=== PATIENT | female | born 1960 | race Caucasian/White ===

== ENCOUNTER 2018-08-06 01:20 | Outpatient (CLI) | payer BC, MEDICAID, SELFPAY ==
[2018-08-06 12:26] LABS: Hemoglobin A1C 6.9 % (4.5-6.2)
== END 2018-08-06 01:40 ==
PROVIDERS: PCP Family Medicine; Visit Provider Family Medicine
DX: E11.9 Type 2 diabetes mellitus without complications (principal)
CPT/HCPCS: 36415; 83036

== ENCOUNTER 2018-10-03 01:58 | Outpatient (CLI) | payer BC, SELFPAY ==
[2018-10-03 11:55] LABS: ESR 13 MM/HR (0-30)
== END 2018-10-03 02:18 ==
PROVIDERS: PCP Family Medicine; Visit Provider Family Medicine
DX: M89.8X9 Other specified disorders of bone, unspecified site (principal)
CPT/HCPCS: 36415; 85652

== ENCOUNTER 2018-10-15 15:02 | Outpatient (REF) | payer BC, MEDICAID, SELFPAY ==
--- NOTE | 2018-10-15 14:30 | PAPFT_PTH ---
PATIENT: Lu Anaya LOC: [facility] U#:[id number] AGE/SX: 58/F ROOM: RE10/15/[address]: LAW Marcos : 1960 BED: DIS: 10/15/2018 SPEC #: [id number] RECD: 10/15/18 18:14 STATUS: OSORIOSoren REQ #: [id number] MILADYS: 10/15/18 14:[address]: Myla Freeman DEPT: [facility] Cytology RECD BY: Conchita French ENTERED: 10/15/18 18:14 SP TYPE: PAPFT CHRISTINE DR: Luther Darnell MD Tissues: 1 - CX/ENDOCX FOR PAP SMEARS Procedures: PAP THIN PREP/UVM Screening HPV DNA PROBE Comments: [id number]
== END 2018-10-15 15:22 ==
LOC: LBN 15:02
PROVIDERS: PCP Family Medicine; Visit Provider Nurse Practitioner Family
DX: Z12.4 Encounter for screening for malignant neoplasm of cervix (principal); Z11.51 Encounter for screening for human papillomavirus (HPV)
CPT/HCPCS: 88142; 87624

== ENCOUNTER 2018-10-25 00:51 | Outpatient (CLI) | payer BC, MEDICAID, SELFPAY ==
--- NOTE | 2018-10-25 12:30 | DI.MAMMO_ITS ---
SYMPTOMS/DIAGNOSIS: SCREENING, Z12.31 MAMMOGRAM: Mammograms were interpreted according to the usual protocol including computer analysis with CAD system, tomosynthesis and C view imaging. The breasts are of moderate density with fairly symmetrical distribution of fibroglandular tissue. No dominant mass or clumped microcalcification is identified in either breast. The current examination is compared with previous examinations including 10/05 and there has been no gross interval change in appearance in comparison with the previous studies. CONCLUSION: No specific evidence of malignancy at this time. Routine screening examinations are suggested at yearly intervals in this age group according to the ACS/ACR guidelines. Category I. Breast density Category B. MQSA ASSESSMENT OF FINDINGS: Negative. Category 1. Patient will receive a letter notifying them of these results. BI-RADS category B. There are scattered areas of fibroglandular density.
== END 2018-10-25 01:11 ==
PROVIDERS: PCP Family Medicine; Visit Provider Nurse Practitioner Family
DX: Z12.31 Encounter for screening mammogram for malignant neoplasm of breast (principal)
CPT/HCPCS: 77063; 77067

== ENCOUNTER 2018-12-24 08:08 | Day surgery (SDC) | payer BC, SELFPAY ==
--- NOTE | 2018-12-24 06:55 | COLE_ITS ---
Date of service: 12/24/18 Time of Service: :24 Colonoscopy Report Date of procedure: 12/24/18 Pre-op diagnosis general: Hx of polyps, s/p sigmoid colectomy Post-op diagnosis procedure note: other (polyps) Procedure: Colonoscopy with polypectomy by cold forceps Surgeon: Corrine Bearden Anesthesia proc note operative: other (General/ ASA 2/ Ashwini Fox, [place]) Estimated blood loss (mL): 3 Pathology: other (Rectal polyps x3, sigmoid polyp) Complications: None Disposition: no change Indications: Mrs. Anaya is a pleasant 58 year old female seen in the office for another screening colonoscopy. Her last colonoscopy was in 2014 and she had a large tubular adenoma that could not be removed completely so she underwent a sigmoid colectomy. Risks, benefits and complications have been reviewed. Complications include but are not limited to bleeding, pain, perforation, missed small lesion/polyp, sore throat, aspiration and adverse reaction to the medications. Questions were entertained and answered to their satisfaction and they wished to proceed. No guarantees were given or implied. Prep: Miralax/Dulcolax Procedure Start Time: :24 Procedure End Time: :43 Retraction Time: 13 minutes Findings: 2 rectal polyps right at the dentate line rectal polyp at 13 cm Sigmoid polyp Procedure Description: After informed consent was obtained the patient was taken to the procedure room and placed in a left decubitous position. Monitors were applied and a time out was done. The patients name, date of , procedure, allergies to medications and metal in their body was reviewed. The patient was then sedated. Once sedated and comfortable a rectal exam was done. External exam was normal. Internal exam revealed a slightly decreased sphincter tone and no palpable masses. The scope was then introduced and retro-flexed. Grade 1 internal hemorrhoids were identified as well as 2 small sessile polyps just above the dentate line. The scope was then advanced to the cecum without difficulty. The TI and appendiceal orifice were identified. The prep was good. The scope was then slowly retracted over 13 minutes back into the rectum. Polyps were removed x1 in the sigmoid colon with a cold forceps and in the rectum x3 with cold forceps. The scope was removed and the patient was woken up and taken back to Same day surgery in stable condition. The patient tolerated the procedure well and there were no immediate compli cations. Follow up: The patient should follow up in 3-5 years unless they develop changes in bowel habits or other new gastrointestinal complaints.
--- NOTE | 2018-12-24 06:55 | W.PM.DSUDISC ---
Discharge Plan Disposition Patient Disposition: HOME Condition: Good Discharge Details Reason For Visit: Colon Cancer Screening Attending Provider: Corrine Bearden Primary Care Provider: Luther Darnell Home Meds and New Rx's Prescriptions: Continued atenolol 25 mg tablet 25 mg PO DAILY Qty: 90 RF: 3 lisinopril-hydrochlorothiazide 20-12.5 mg tablet 1 tab PO DAILY Qty: 90 RF: 3 atorvastatin 10 mg tablet 10 mg PO DAILY Qty: 90 RF: 3 terbinafine HCl 250 mg tablet 250 mg PO DAILY Qty: 30 RF: 1 omeprazole 20 MG capsule,delayed release(DR/EC) 20 mg PO BID Qty: 60 RF: 0 Blood Glucose Test 1 EACH strip 1 ea Miscellaneous BID Qty: 100 RF: 2 lancets 1 EACH misc 1 ea Miscellaneous BID Qty: 100 RF: 3 blood-glucose meter 1 EACH misc 1 ea Miscellaneous BID Qty: 1 RF: 0 Discontinued polyethylene glycol 3350 17 gram/dose powder 238 g PO ONCE Qty: 238 RF: 0 bisacodyl [Dulcolax (bisacodyl)] 5 mg tablet,delayed release (DR/EC) 5 mg PO ONCE Qty: 4 RF: 0 Discharge Instructions Instructions: Colonoscopy (DC), Colorectal Polyps (DC) Additional Instructions: Findings: small benign appearing polyps Follow up: depends on final pathology Please call if you develop: fevers >101.5 Nausea or Vomiting Abdominal pain that is not transient DAY SURGERY UNIT POST COLONOSCOPY INSTRUCTIONS 1. Because there will be medication in your system for the next 24 hours, you may feel a little sleepy. Your coordination will be affected. Therefore: a. Do not drive or operate dangerous equipment for 24 hours. b. Do not drink alcohol beverages for 24 hours (not even beer). c. Plan to go home and rest for the day. 2. Generally there are no restrictions on your activity after a day or so has gone by, but you may feel a bit fatigued for a few days. 3 After you arrive home you may have a light meal and return to a normal diet as you can tolerate it without feeling sick to your stomach. 4. After surgery, you may feel pain or discomfort. This should be only transient, but if it persists please contact your doctor. 5. If there are any questions regarding the findings of your procedure, please feel free to contact your doctor. 6. If you are unable to contact your doctor with a problem, contact the hospital at [phone]. 7. Continue all your regular medications unless directed otherwise. I understand the above instructions and have no questions. Signature of Patient or Responsible Adult Escort Date/Time Name of Responsible Adult Escort Signature of Nurse Date/Time Activity:: Activity as Tolerated Diet:: As Tolerated Discharge Orders Discharge Orders: Discharge Order (Routine); Ordered 12/24/18 Ordered By: Corrine Bearden DS: Diagnosis Discharge Diagnosis (1) S/P colonoscopy: Status: Acute (2) Colorectal polyps: Status: Acute
[2018-12-24 08:46] VITALS: BP 166/62; PULSE 73; RESP 18; TEMP 36.7; O2SAT 94
[2018-12-24 08:48] VITALS: BP 166/62; PULSE 73; RESP 18; TEMP 36.7; O2SAT 94
[2018-12-24] MEDS: Lactated Ringers 1,000 ML 80 ML IV (08:55)
[2018-12-24] MEDS: Sodium Citrate 30 ML CUP (09:15)
--- NOTE | 2018-12-24 09:26 | BOWEL_PTH ---
PATIENT: Lu Anaya LOC: [facility] U#:[id number] AGE/SX: 58/F ROOM: RE12/24/[address]: Corrine Bearden MD : 1960 BED: DIS: 12/24/2018 SPEC #: [id number] RECD: 12/24/18 12:57 STATUS: RANDY REQ #: [id number] MILADYS: 12/24/18 09:[address]: Corrine Bearden DEPT: Surgical Specimen RECD BY: Conchita French ENTERED: 12/24/18 12:58 SP TYPE: Bowel OTHR DR: Luther Darnell MD Tissues: 1 - BIOPSY BOWEL 2 - BIOPSY BOWEL Procedures: GROSS AND MICRO LEVEL 4 Comments: [id number]
[2018-12-24 10:12] VITALS: BP 131/67; PULSE 64; RESP 18; TEMP 36.8; O2SAT 96
== END 2018-12-24 10:51 | disposition home or self-care (01) ==
PROVIDERS: PCP Family Medicine; Visit Provider Surgery
PROC: 0DJD8ZZ Inspection of Lower Intestinal Tract, Via Natural or Artificial Opening Endoscopic (ICD-10-PCS; CPT 45378; principal; 2018-12-24 09:15)
DX: Z12.11 Encounter for screening for malignant neoplasm of colon (principal); K63.5 Polyp of colon; K64.0 First degree hemorrhoids; Z86.010 Personal history of colon polyps; Z90.49 Acquired absence of other specified parts of digestive tract; J44.9 Chronic obstructive pulmonary disease, unspecified; I10 Essential (primary) hypertension; K21.9 Gastro-esophageal reflux disease without esophagitis
CPT/HCPCS: 45380; 88305

== ENCOUNTER 2019-01-08 09:29 | Outpatient (CLI) | payer BC, SELFPAY ==
[2019-01-08 15:08] LABS: Cholesterol 163 mg/dL (50-200); HDL Cholesterol 34 mg/dL (40-60); LDL CHOLESTEROL 100 mg/dL (<100); Triglyceride 240 mg/dL (30-150)
== END 2019-01-08 09:49 ==
PROVIDERS: PCP Family Medicine; Visit Provider Family Medicine
DX: I10 Essential (primary) hypertension (principal); E11.9 Type 2 diabetes mellitus without complications
CPT/HCPCS: 36415; 80061; 83721; 83036

== ENCOUNTER 2019-07-16 02:40 | Outpatient (CLI) | payer BC, MEDICAID, SELFPAY ==
[2019-07-16 13:11] LABS: ALT 32 U/L (14-59); AST 14 U/L (15-37); CREATININE 0.72 mg/dL (0.55-1.02); Potassium 4.4 mmol/L (3.5-5.1)
[2019-07-16 13:17] LABS: Hemoglobin A1C 7.9 % (4.5-6.2)
[2019-07-16 14:26] LABS: ESR 10 mm/hr (0-30)
== END 2019-07-16 03:00 ==
PROVIDERS: PCP Family Medicine; Visit Provider Family Medicine
DX: E11.9 Type 2 diabetes mellitus without complications (principal); M79.10 Myalgia, unspecified site
CPT/HCPCS: 36415; 85652; 82565; 83036; 84132; 84450; 84460

== ENCOUNTER 2019-09-26 02:21 | Outpatient (CLI) | payer BC, MEDICAID, SELFPAY ==
--- NOTE | 2019-09-26 10:34 | DI.RAD_ITS ---
EXAM: XR LUMBAR SPINE COMPLETE CLINICAL HISTORY: low back pain with radicular symptoms on rt, M54.9 TECHNIQUE: COMPARISON: No exams were available for comparison FINDINGS: Five views were obtained. There is a minimal biconvex thoracolumbar scoliosis. There are degenerati ve changes of the SI joints bilaterally. The intervertebral disc spaces appear fairly well maintaine d. There are prominent multilevel changes of facet hypertrophy and endplate hypertrophy. No evidenc e of acute fracture. No evidence of spondylolysis or spondylolisthesis. IMPRESSION: Prominent hypertrophic degenerative changes predominantly involving facet joints of the lumbar spine.
== END 2019-09-26 02:41 ==
PROVIDERS: PCP Family Medicine; Visit Provider Family Medicine
DX: M54.5 Low back pain (principal); M54.16 Radiculopathy, lumbar region; M53.3 Sacrococcygeal disorders, not elsewhere classified; M47.26 Other spondylosis with radiculopathy, lumbar region
CPT/HCPCS: 72110

== ENCOUNTER 2021-03-24 01:59 | Outpatient (CLI) | payer BC, SELFPAY ==
--- NOTE | 2021-03-24 13:38 | DI.RAD_ITS ---
Exam(s) XR HAND LT COMPLETE EXAM: XR HAND LT COMPLETE CLINICAL HISTORY: left index finger pain,nodule band base lt finger dorsal asp,m79.642. TECHNIQUE: 2D digital imaging was performed. COMPARISON: No exams were available for comparison FINDINGS: BONES: No acute fracture is present. No bony destructive lesion is seen. JOINTS: No dislocation present. Degenerative changes are seen in the hand. The findings are most mar ked at the 1st CMC joint. SOFT TISSUE: Normal. IMPRESSION: No acute fracture or dislocation. DATA REPOSITORY: RADIATION DOSE DELIVERED:
== END 2021-03-24 02:19 ==
PROVIDERS: PCP Family Medicine; Visit Provider Family Medicine
DX: M79.645 Pain in left finger(s) (principal); R22.32 Localized swelling, mass and lump, left upper limb
CPT/HCPCS: 73130

== ENCOUNTER 2021-03-25 03:01 | Outpatient (CLI) | payer BC, MEDICAID, SELFPAY ==
[2021-03-25 15:50] LABS: CREATININE 0.7 mg/dL (0.55-1.02); Calculated LDL 90 mg/dL (<100); Cholesterol 185 mg/dL (<200); HDL Cholesterol 39 mg/dL (40-60); Potassium 4.6 mmol/L (3.5-5.1); Triglyceride 284 mg/dL (<150)
== END 2021-03-25 03:02 | disposition home or self-care (01) ==
LOC: LBO 03:01
PROVIDERS: PCP Family Medicine; Visit Provider Family Medicine
DX: E11.65 Type 2 diabetes mellitus with hyperglycemia (principal); E78.5 Hyperlipidemia, unspecified; I10 Essential (primary) hypertension
CPT/HCPCS: 36415; 80061; 82565; 84132

== ENCOUNTER 2021-07-23 15:07 | Outpatient (REF) | payer BC, SELFPAY ==
[2021-07-23 21:00] LABS: COMMENT (LAB VIEW ONLY) 45.91 mg/dL; Microalb ug/mg Crea 41.8 ug/mg Cr
== END 2021-07-23 15:08 | disposition home or self-care (01) ==
LOC: LBN 15:07
PROVIDERS: PCP Family Medicine; Visit Provider Family Medicine
DX: E11.9 Type 2 diabetes mellitus without complications (principal)
CPT/HCPCS: 82043; 82570

== ENCOUNTER 2022-02-02 11:08 | Outpatient (CLI) | payer BC, SELFPAY, MEDICAID ==
[2022-02-02 13:12] LABS: Calculated LDL 101 mg/dL (<100); Cholesterol 193 mg/dL (<200); HDL Cholesterol 38 mg/dL (40-60); Triglyceride 271 mg/dL (<150)
== END 2022-02-02 11:09 | disposition home or self-care (01) ==
LOC: LOS 11:08
PROVIDERS: PCP Family Medicine; Referring Provider Family Medicine; Visit Provider Family Medicine
DX: E78.5 Hyperlipidemia, unspecified (principal)
CPT/HCPCS: 36415; 80061

== ENCOUNTER 2022-05-04 11:29 | Outpatient (CLI) | payer BC, MEDICAID, SELFPAY ==
[2022-05-04 12:37] LABS: Abs Immature Grans 0.03 10^3/uL (0.0-0.06); Absolute Eosinophil Count 0.25 10^3/uL (0.0-0.7); Absolute Lymphocyte Count 2.81 10^3/uL (1.2-3.4); Absolute Monocyte Count 0.94 10^3/uL (0.1-0.8); Absolute Neutrophil Count 7.05 10^3/uL (1.2-6.7); Basophils % 0.9; Eosinophils % 2.2; HCT 47.2 % (36.0-46.0); HGB 15.6 g/dL (11.2-15.7); Immature Grans % 0.3; Lymphocytes % 25.1; MCH 29.3 pg (27.0-33.0); MCHC 33.1 % (32.0-36.0); MCV 89 fL (80-95); MPV 11.5 fL (8.0-11.0); Monocytes % 8.4; Neutrophils % 63.1; Platelet Count 308 10^3/uL (130-400); RBC 5.33 10^6/uL (3.93-5.22); WBC 11.18 10^3/uL (4.4-10.8)
[2022-05-04 12:42] LABS: CREATININE 0.7 mg/dL (0.55-1.02); Potassium 4.2 mmol/L (3.5-5.1)
== END 2022-05-04 11:30 | disposition home or self-care (01) ==
LOC: LOS 11:29
PROVIDERS: PCP Family Medicine; Referring Provider Family Medicine; Visit Provider Family Medicine
DX: I10 Essential (primary) hypertension (principal); D64.9 Anemia, unspecified
CPT/HCPCS: 36415; 82565; 84132; 85025

== ENCOUNTER 2022-08-03 22:22 | Outpatient (REF) | payer BC, SELFPAY ==
[2022-08-03 13:22] LABS: COMMENT (LAB VIEW ONLY) 25.84 mg/dL; Microalb ug/mg Crea 45.3 ug/mg Cr
== END 2022-08-03 22:23 | disposition home or self-care (01) ==
LOC: LBN 22:22
PROVIDERS: PCP Family Medicine; Visit Provider Family Medicine
DX: E11.9 Type 2 diabetes mellitus without complications (principal)
CPT/HCPCS: 82043; 82570

== ENCOUNTER → 2022-08-04 02:59 | Outpatient (CLI) | payer BC, SELFPAY ==
--- NOTE | 2022-08-04 07:00 | DI.RAD_ITS ---
Exam(s) XR LUMBAR SPINE COMPLETE EXAM: XR LUMBAR SPINE COMPLETE CLINICAL HISTORY: low back pain,M54.9 TECHNIQUE: COMPARISON: CR XR LUMBAR SPINE COMPLETE from 09/26/2019 FINDINGS: Five views were obtained. The intervertebral disc spaces appear fairly well maintained. There are m oderate hypertrophic endplate and facet changes throughout the lumbar region. There is no evidence o f fracture or dislocation. There is no evidence of spondylolysis or spondylolisthesis. There are mo derate degenerative changes of the SI joints bilaterally. IMPRESSION: DJD, no evidence of acute process. RADIATION DOSE DELIVERED: Total DLP
--- NOTE | 2022-08-04 07:00 | DI.RAD_ITS ---
Exam(s) XR KNEE RT 3V AP,LAT,ZELDA EXAM: XR KNEE RT 3V AP,LAT,ZELDA CLINICAL HISTORY: knee pain,M25.569 TECHNIQUE: COMPARISON: No exams were available for comparison FINDINGS: Three views were obtained. The cartilaginous joint spaces appear fairly well maintained. No gross j oint effusion seen on the lateral view. There is prominent marginal osteophyte of the patella superi stephen. No other significant bony abnormality seen. IMPRESSION: RADIATION DOSE DELIVERED: Total DLP
== END ==
PROVIDERS: PCP Family Medicine; Visit Provider Family Medicine
DX: M51.36 Other intervertebral disc degeneration, lumbar region (principal); G89.29 Other chronic pain; M25.561 Pain in right knee
CPT/HCPCS: 73562; 72110

== ENCOUNTER 2022-11-18 01:12 | Outpatient (CLI) | payer BC, SELFPAY ==
--- OUTSIDE RECORDS SUMMARY | 2022-11-18 01:13 | XMS_ITS ---
Author Name Martitamayela Marco Address [address] [place] [address] Organization [facility] Address [address] [place] [address] Care Team Providers Care Warehouse Receiving Clerk Name Role Phone Marco Bateman Unavailable [phone] PROBLEMS Type Condition ICD9-CM Code PBF14-PY Code Onset Dates Condition Status SNOMED Code Problem Other chronic pain G89.29 Active 26023808 Problem Left foot pain M79.672 Active 762185969 817912 Problem Posterior tibial tendinitis of left lower extremity M76.822 Active 77850314 Problem Pain in left ankle and joints of left foot M25.572 Active 279307931 ALLERGIES Substance Reaction Event Type Date Status Aspirin Unknown Drug Allergy Oct, Active ENCOUNTERS Encounter Location Date Diagnosis [facility] [address] Oct, Posterior tibial tendinitis of left lower extremity M76.822 ; Pain in left ankle and joints of left foot M25.572 and Left foot pain M79.672 [facility] [address] Oct, IMMUNIZATIONS No Known Immunizations SOCIAL HISTORY Qualifiers Date Former Smoker REASON FOR REFERRAL FUNCTIONAL STATUS PLAN OF CARE Activity Details VITAL SIGNS Height 66 in 2017-10-31 Weight 211.6 lbs 2017-10-31 BMI 34.15 kg/m2 2017-10-31 Temperature 98.1 degrees Fahrenheit Heart Rate 72 /min 2017-10-31 Respiratory Rate 20 /min 2017-10-31 Oximetry 93 % 2017-10-31 Blood pressure systolic 148 mm Hg 2018-02- 13 Blood pressure diastolic 88 mm Hg 2017-10 MEDICATIONS Medication Instructions Dosage Frequency Start Date End Date Duration Status Omeprazole 20 mg orally once a day 1 cap(s) 24h Active Atenolol 25 mg orally once a day 1 tab(s) 24h Active Diclofenac Sodium 1% applied topically 4 times a day 2 g 6h 13 Oct, 2017 30 day(s) Active Terbinafine HCl 250 mg orally once a day 1 tab(s) 24h Active [facility] Therapeutic Multiple Vitamins with Minerals orally once a day 1 tab(s) 24h Active HYDROCHLOROTHIAZ ALLEN-LISINOPRIL 12.5 mg-20 mg orally once a day 1 tab(s) 24h Active PROCEDURES Procedure Date Ordered Result Body Site SWEDO O STRAP BRACE Oct 31, 2017 [facility]([id number]) Oct 31, 2017 RESULTS No Results REASON FOR VISIT 4 week follow up , --PAIN IN LEFT ANKLE, REFERRAL DONE, pt states that she went to [facility] last week with pain in her left lateral foot. They took xrays which were negative except for arthritis, pt states that the ER recommended she maybe get some custom orthotics, 10/25 dg - Xrays- medical summary Insurance Providers Health Insurance Type Health Plan Insurance Address Health Plan Insurance Phone Health Plan Insurance Name Health Plan Coverage Dates Member ID Patient Relationship to Subscriber Patient Address Patient Phone Patient Name Patient Date of Subscriber ID Subscriber Name Subscriber Date of Group No SELF PAY AFTER BLUE CROSS ANY [facility] [id number] SELF PAY AFTER BLUE CROSS self [employer] [facility] [id number] [facility] [address] [place] [address] [facility] self [employer] [facility] [id number] SELF PAY NO INSURANCE ANY [facility] [id number] SELF PAY NO INSURANCE self [employer] [place] [id number] BLUE [facility] [address] [facility] [place] [address] BLUE [facility] self [employer] [place] [id number]
--- NOTE | 2022-11-18 07:30 | DI.RAD_ITS ---
Exam(s) XR COCCYX EXAM: XR COCCYX CLINICAL HISTORY: fell on buttocks; pain in coccyx,traumatic fx,s32.2xxa. TECHNIQUE: 2D digital imaging was performed. COMPARISON: No exams were available for comparison FINDINGS: 3 views There is a minimally displaced fracture at the junction of the sacrum-coccyx. No osseous lesions verenice dent in the sacrum. Mild degenerative anterolisthesis of L4 upon L5 noted related to facet arthropat hy. IMPRESSION: Minimally displaced fracture at sacrum coccyx junction. DATA REPOSITORY: RADIATION DOSE DELIVERED:
== END 2022-11-18 01:32 ==
LOC: DI 01:12
PROVIDERS: PCP Family Medicine; Visit Provider Family Medicine
DX: S32.2XXA Fracture of coccyx, initial encounter for closed fracture (principal); W19.XXXA Unspecified fall, initial encounter; M53.3 Sacrococcygeal disorders, not elsewhere classified
CPT/HCPCS: 72220

== ENCOUNTER 2023-02-10 20:39 | Emergency (ER) | payer BC, SELFPAY ==
[2023-02-10 20:50] VITALS: BP 152/78; PULSE 94; RESP 22; TEMP 36.9; O2SAT 95
--- NOTE | 2023-02-10 21:30 | DI.RAD_ITS ---
Exam(s) XR KNEE RT 3V AP,LAT,ZELDA EXAM: XR KNEE RT 3V AP,LAT,ZELDA CLINICAL HISTORY: trauma, pain. TECHNIQUE: 2D digital imaging was performed. COMPARISON: CR,XR XR KNEE LT 3V AP,LAT,ZELDA from 02/10/2023 FINDINGS: 3 views No evidence of acute fracture nor obvious joint effusion. Mild degenerative changes in the patellofe moral compartment. Also small osteophytic density just above the superior pole the patella which harris s not have the appearance of an acute fracture fragment. No narrowing of the medial lateral compartm ents. Bone density normal. No osseous lesions. IMPRESSION: Mild degenerative changes. No joint effusion. DATA REPOSITORY: RADIATION DOSE DELIVERED:
--- NOTE | 2023-02-10 21:30 | DI.RAD_ITS ---
Exam(s) XR KNEE LT 3V AP,LAT,ZELDA EXAM: XR KNEE LT 3V AP,LAT,ZELDA CLINICAL HISTORY: trauma pain. TECHNIQUE: 2D digital imaging was performed. COMPARISON: CR XR KNEE RT 3V AP,LAT,ZELDA from 08/04/2022 FINDINGS: 3 views No evidence of acute fracture or joint effusion. Some degenerative change noted in the patellofemora l compartment and mild degenerative change in the medial lateral compartments. There is no bone dens ity. No osseous lesions. IMPRESSION: Mild degenerative changes. No joint effusion. DATA REPOSITORY: RADIATION DOSE DELIVERED:
--- NOTE | 2023-02-10 21:38 | ED.GENADUL_ITS ---
Discharge Plan Disposition Patient Disposition: Home Condition: Stable Discharge Details Clinical Impression: Multiple contusions, Abrasion Primary Care Provider: Luther Darnell ED Provider: Carolyn Poe Home Meds and New Rx's Prescriptions: Continued (DME) Blood Glucose Test 1 EACH strip 1 ea Miscellaneous BID Qty: 100 Patient Comments: 12/24/18 @ 0645 Rx Instructions: FOR freestyle precison ajay. METER. PT DOES NOT USE INSULIN. DIAGNOSIS CODE E11.9 (DME) lancets 1 EACH misc 1 ea Miscellaneous BID Qty: 100 Patient Comments: pt used today at 0645 Rx Instructions: FOR Freestyle METER. NO INSULIN. DIAGNOSIS CODE E11.9 (DME) blood-glucose meter 1 EACH misc 1 ea Miscellaneous BID Qty: 1 Patient Comments: used 12/24/18 @ 0645 Rx Instructions: METER TYPE freeslyle precision ajay. DIAGNOSIS CODE E11.9 No Action acetaminophen 500 mg capsule 500 mg PO Q6H PRN diclofenac sodium 75 mg tablet,delayed release (DR/EC) 75 mg PO BID Qty: 60 0RF atorvastatin 10 mg tablet 10 mg PO DAILY Qty: 90 3RF terbinafine HCl 250 mg tablet 250 mg PO DAILY Qty: 7 3RF Rx Instructions: take one pill each day for 7 days every 3 months Jardiance 25 mg tablet 25 mg PO QAM Qty: 90 3RF metformin 500 mg tablet 500 mg PO BID Qty: 180 3RF omeprazole 40 mg capsule,delayed release(DR/EC) 40 mg PO DAILY Qty: 30 3RF Rybelsus 14 mg tablet 14 mg PO DAILY Qty: 90 3RF fenofibrate nanocrystallized [Tricor] 48 mg tablet 48 mg PO DAILY Qty: 90 3RF lisinopril-hydrochlorothiazide 20-12.5 mg tablet 2 tab PO DAILY Qty: 180 3RF Discharge Instructions Instructions: Contusion in Adults (ED), Abrasion (ED), Laceration Without Closure (ED) Additional Instructions: Apply ice to affected areas every 2-3 hours while awake for the next 24 to 48 hours then can use heat or ice Can use ibuprofen and/or acetaminophen as directed for pain if needed Keep wounds clean and dry wash daily with warm soapy water rinse well pat dry apply dry dressing monitor for signs of infection and report immediately can wear chidi wraps to bilateral knees for comfort Referrals: Luther Darnell MD [Primary Care Provider] - Discharge Data Discharge Date/Time-TO BE ENTERED AT DEPARTURE: 02/10/23 23:58 HPI <Carolyn Poe NP - Last Filed: 02/11/23 20:36> General Mode of arrival: ambulatory . Date/Time Provider Initiated Documentation: 02/10/23 21:22 . Limitations to Documentation: no limitations . Information obtained by: patient . HPI Narrative: Mechanical fall today on her handicap ramp injuring both knees striking her left side of her forehead on the ground. There was no LOC she has no C-spine tenderness she also has an abrasion to the left elbow but full range of motion no significant pain no hematoma no deformity. She provided her own wound care at home there is no bleeding wounds are all clean and dry. Related Data Home Medications Medication Instructions Recorded Confirmed blood sugar diagnostic (Blood #100 strips 03/13/17 12/12/23 Glucose Test strips) lancets 28 gauge #100 ea 03/14/17 12/12/23 blood-glucose meter #1 ea 03/15/17 12/12/23 acetaminophen 500 mg capsule 500 mg PO Q6H PRN 03/07/23 12/12/23 semaglutide 14 mg tablet (Rybelsus) 14 mg PO DAILY #90 tabs 03/15/23 12/12/23 fenofibrate nanocrystallized 48 mg 48 mg PO DAILY #90 tabs 05/17/23 12/12/23 tablet (Tricor) lisinopril 20 2 tab (2 x 20-12.5 mg) PO DAILY 05/18/23 12/12/23 mg-hydrochlorothiazide 12.5 mg #180 tab-caps tablet atorvastatin 10 mg tablet 10 mg PO DAILY #90 tabs 08/17/23 12/12/23 terbinafine HCl 250 mg tablet 250 mg PO DAILY #7 tab-caps 08/17/23 12/12/23 empagliflozin 25 mg tablet 25 mg PO QAM #90 tabs 11/15/23 12/12/23 (Jardiance) metformin 500 mg tablet 500 mg PO BID #180 tabs 11/15/23 12/12/23 omeprazole 40 mg capsule,delayed 40 mg PO DAILY #30 caps 11/15/23 12/12/23 release diclofenac sodium 75 mg 75 mg PO BID #60 tabs 12/12/23 12/12/23 tablet,delayed release Previous Rx's Medication Instructions Recorded semaglutide 14 mg tablet (Rybelsus) 14 mg PO DAILY #90 tabs 03/15/23 fenofibrate nanocrystallized 48 mg 48 mg PO DAILY #90 tabs 05/17/23 tablet (Tricor) lisinopril 20 2 tab (2 x 20-12.5 mg) PO DAILY 05/18/23 mg-hydrochlorothiazide 12.5 mg #180 tab-caps tablet atorvastatin 10 mg tablet 10 mg PO DAILY #90 tabs 08/17/23 terbinafine HCl 250 mg tablet 250 mg PO DAILY #7 tab-caps 08/17/23 empagliflozin 25 mg tablet 25 mg PO QAM #90 tabs 11/15/23 (Jardiance) metformin 500 mg tablet 500 mg PO BID #180 tabs 11/15/23 omeprazole 40 mg capsule,delayed 40 mg PO DAILY #30 caps 11/15/23 release diclofenac sodium 75 mg 75 mg PO BID #60 tabs 12/12/23 tablet,delayed release Allergies Allergy/AdvReac Type Severity Reaction Status Date / Time ciprofloxacin AdvReac Severe HEARTBURN Verified 12/12/23 13:32 aspirin AdvReac Intermediate Nausea Verified 12/12/23 13:32 General Stated Complaint: Orthopedic DAR: 3 Review of Systems <Carolyn Poe NP - Last Filed: 02/11/23 20:36> All systems reviewed & are unremarkable except as noted in HPI and below Course <Carolyn Poe NP - Last Filed: 02/11/23 20:36> Vital Signs Vital signs: Vital Signs Temperature 36.9 C 02/10/23 20:50 Pulse 94 H 02/10/23 20:50 Respiratory Rate 22 02/10/23 20:50 Blood Pressure 152/78 H 02/10/23 20:50 Pulse Oximetry 95 02/10/23 20:50 Temperature 36.9 C 02/10/23 20:50 Temperature Source Oral 02/10/23 20:50 Pulse 94 H 02/10/23 20:50 Respiratory Rate 22 02/10/23 20:50 Blood Pressure 152/78 H 02/10/23 20:50 Blood Pressure Position Sitting 02/10/23 20:50 Pulse Oximetry 95 02/10/23 20:50 Oxygen Delivery Method Room Air 02/10/23 20:50 Oxygen Flow Rate 0 02/10/23 20:50 Pain Level 6 02/10/23 20:50 Medical Decision Making <Carolyn Poe NP - Last Filed: 02/11/23 20:36> Tetanus was updated 2019 Wounds cleansed by nursing dry dressings applied ice pack to left knee Given 1000 mg of acetaminophen orally for pain X-ray showed no acute fractures wound care instructions given Medical Records Medical records reviewed: Yes I reviewed the patient's medical records. Imaging Data Radiologic Study: Imaging: X-Ray (Bilateral knees) <Rodriguez Finney MD - Last Filed: 12/19/23 01:24> Medical Records Medical records narrative: I did not see this patient nor participate in her care. Rodriguez Finney MD [facility] <Carolyn Poe NP - Last Filed: 02/11/23 20:36> All Active Problems (Updated 12/12/23 @ 13:40 by Luther Darnell MD) Left elbow pain (Acute) Fatty liver (Acute) Epigastric pain (Acute) Foot pain (Acute) Metatarsalgia (Acute) Arthralgia (Acute) Contusion of right elbow (Acute) Elbow pain, right (Acute) Essential hypertension (Acute) Claustrophobia (Acute) Hyperlipidemia (Acute) Chronic obstructive lung disease (Acute) Gastroesophageal reflux disease (Acute) borderline diabetic (Acute) degenerative arthritis (Acute) Tubular adenoma (Acute) CDanielson, large tubular adenoma required resection 04/03/15, repeat colo three years per CD. mg Diverticula of colon (Acute 02/16/15) Degenerative joint disease (DJD) of hip (Acute) 08/08/13; RIGHT Encounter for screening colonoscopy (Acute) S/P colonoscopy (Acute ~12/24/18) Colorectal polyps (Acute ~12/24/18) Diabetes mellitus (Chronic) Chronic neck and back pain (Chronic) Hyperplastic colon polyp (Acute ~12/24/18) Status post carpal tunnel release (Acute) History of shoulder surgery (Acute 07/09/14) History of right knee surgery (Acute 07/09/14) History of laparoscopy (Acute) History of endoscopy (Acute) Bilateral carpal tunnel syndrome (Acute 07/09/14) Low back pain (Acute) Left hand pain (Acute) Asymmetric blood pressures (Acute) Myalgia (Acute) GERD (gastroesophageal reflux disease) (Chronic) Foot pain, right (Acute) Chronic knee pain (Acute) Cold extremities (Acute) Traumatic fracture of coccyx (Acute) Tick bite (Acute) Surgical History Diagnostic Laproscopy Early for ovarian cysts Endoscopy (06/20/13) History of colectomy History of colonoscopy knee Open Carpal Tunnel release Bilateral shoulder Family History Mother Essential hypertension Father Diabetes Essential hypertension Heart disease HAS PACEMAKER Sister Essential hypertension Hyperlipidemia Brother Sleep apnea Diabetes Essential hypertension Personal history of malignant neoplasm skin Heart disease ANGINA Hyperlipidemia Social History Smoking/Tobacco Use Status: Former Tobacco Use Quit Date: 11/16/12 Smoking risk assessment performed?: Yes Alcohol Intake: never Drug use: Never Substance use type: does not use Current gender identity: female Do you feel safe at home: Yes Do you feel safe in your relationship?: Yes History History 0 Para Hx # Term Pregnancies Multiple births Hx # Pregnancies Ectopic pregnancies AB induced Hx Number of Living Children AB spontaneous
[2023-02-10] MEDS: Acetaminophen 500 MG TAB 1000 MG PO (21:57)
--- NOTE | 2023-02-10 22:34 | DI.VRAD_ITS ---
PROCEDURE INFORMATION: Exam: XR Right Knee Exam date and time: 02/10/2023 10:05 PM Age: 62 years old Clinical indication: Other: Trauma pain TECHNIQUE: Imaging protocol: Radiologic exam of the right knee. Views: 3 views. COMPARISON: CR XR KNEE RT 3V AP,LAT,ZELDA 08/04/2022 12:38 PM FINDINGS: Bones/joints: There is mild spurring of the patella and tibial spines. Osseous alignment is normal. No acute fracture or joint fluid. Mild scattered calcification noted in the femoral/popliteal artery Soft tissues: Normal. IMPRESSION: Mild osteoarthritis. No acute abnormality Dictated and Authenticated by: Todd Bahena MD. Ordering:VIET Leon MD
--- NOTE | 2023-02-10 22:35 | DI.VRAD_ITS ---
PROCEDURE INFORMATION: Exam: XR Left Knee Exam date and time: 02/10/2023 10:04 PM Age: 62 years old Clinical indication: Other: Trauma pain TECHNIQUE: Imaging protocol: Radiologic exam of the left knee. Views: 3 views. COMPARISON: CR LEFT KNEE 3 VIEW COMPLETE 02/22/2017 8:25 AM FINDINGS: Bones/joints: There is mild spurring of the patella and tibial spines. Osseous alignment is normal. No acute fracture or joint fluid. Soft tissues: Normal. IMPRESSION: Mild osteoarthritis. No acute abnormality Dictated and Authenticated by: Todd Bahena MD. Ordering:VIET Leon MD
== END 2023-02-10 23:58 | disposition home or self-care (01) ==
PROVIDERS: Emergency Provider Nurse Practitioner Acute Care; PCP Family Medicine
DX: S80.212A Abrasion, left knee, initial encounter (principal); S80.211A Abrasion, right knee, initial encounter; S50.312A Abrasion of left elbow, initial encounter; S00.212A Abrasion of left eyelid and periocular area, initial encounter; W01.0XXA Fall on same level from slipping, tripping and stumbling without subsequent striking against object, initial encounter
CPT/HCPCS: 73562; 99283

== ENCOUNTER 2023-03-07 14:12 | Outpatient (REF) | payer BC, SELFPAY ==
--- NOTE | 2023-03-07 14:00 | PAPFT_PTH ---
PATIENT: Lu Anaya LOC: [facility] U#:[id number] AGE/SX: 62/F ROOM: RE03/07/[address]: Venice Greco MD : 1960 BED: DIS: 03/07/2023 SPEC #: [id number] RECD: 03/07/23 17:44 STATUS: RANDY REQ #: [id number] MILADYS: 03/07/23 14:[address]: Venice Greco DEPT: [facility] Cytology RECD BY: Conchita French ENTERED: 03/07/23 17:45 SP TYPE: PAPFT OTHR DR: Luther Darnell MD Tissues: 1 - CX/ENDOCX FOR PAP SMEARS Procedures: PAP THIN PREP/[facility] Screening HPV DNA PROBE Comments: [id number]
== END 2023-03-07 14:13 | disposition home or self-care (01) ==
LOC: LBN 14:12
PROVIDERS: PCP Family Medicine; Visit Provider Obstetrics & Gynecology
DX: Z11.51 Encounter for screening for human papillomavirus (HPV) (principal)
CPT/HCPCS: 88142; 87624

== ENCOUNTER 2023-03-20 02:05 | Outpatient (CLI) | payer BC, SELFPAY ==
--- NOTE | 2023-03-20 12:20 | DI.MAMMO_ITS ---
Exam(s) MAMMO SCREENING EXAM: MAMMO SCREENING CLINICAL HISTORY: screening, Z12.39 TECHNIQUE: Mammograms were interpreted according to the usual protocol including computer analysis w [employer] CAD system, tomosynthesis and C-view imaging. COMPARISON: 2012 through 2018 FINDINGS: The breasts are composed of scattered fibroglandular densities, Breast Density category B. No suspicious masses or suspicious microcalcifications are seen. No skin thickening or abnormal axillary lymph nodes are seen. There has been no significant change from prior exams. IMPRESSION: BI-RADS Category 1, Negative mammogram Yearly screening mammography is recommended. Breast Density - Category B, scattered fibroglandular densities. A negative radiographic report should not delay biopsy if a dominant or clinically suspicious mass is present. Up to ten percent of cancers are not identified on mammography. A negative report may reinforce clinical impression. Adenosis and dense breasts may obscure an underlying neoplasm. False positive reports average 6 to 10%. Patient will receive a letter notifying them of these results.
== END 2023-03-20 02:25 ==
LOC: DI 02:05
PROVIDERS: PCP Family Medicine; Visit Provider Obstetrics & Gynecology
DX: Z12.31 Encounter for screening mammogram for malignant neoplasm of breast (principal)
CPT/HCPCS: 77063; 77067

== ENCOUNTER 2023-03-29 15:17 | Outpatient (CLI) | payer BC, SELFPAY ==
--- NOTE | 2023-03-29 15:44 | DI.RAD_ITS ---
Exam(s) XR ELBOW RT COMPLETE EXAM: XR ELBOW RT COMPLETE CLINICAL HISTORY: elbow pain s/p fall 4 weeks ago, M25.521. TECHNIQUE: 2D digital imaging was performed. COMPARISON: No exams were available for comparison FINDINGS: 3 views There is no evidence of acute fracture of the distal humerus nor of the radial head and neck. There is no fracture of the lack or non fossa. However, there is a linear lucency seen in the coronoid pro cess of the intra-articular ulna which may represent subtle fracture. There is no prominent elevatio n of the fat pad. There is relatively focal swelling of the olecranon bursa. There is no fracture of the subjacent ole cranon fossa. No radiopaque foreign body at this level nor abnormal calcification in the soft tissue s of the olecranon bursa. IMPRESSION: There appears to be a fracture in the coronoid process of the ulna. There is a possibly that degener ative changes at this level may cause the appearance of a pseudo fracture. There is focal swelling of the olecranon bursa. Consider follow-up CT or MRI. DATA REPOSITORY: RADIATION DOSE DELIVERED:
== END 2023-03-29 15:37 ==
LOC: DI 15:24
PROVIDERS: PCP Family Medicine; Visit Provider Family Medicine
DX: M25.521 Pain in right elbow (principal); S52.044A Nondisplaced fracture of coronoid process of right ulna, initial encounter for closed fracture; M70.21 Olecranon bursitis, right elbow
CPT/HCPCS: 73080

== ENCOUNTER 2023-04-12 10:50 | Outpatient (CLI) | payer BC, SELFPAY ==
--- NOTE | 2023-04-12 11:19 | DI.RAD_ITS ---
Exam(s) XR ELBOW RT COMPLETE EXAM: XR ELBOW RT COMPLETE CLINICAL HISTORY: elbow pain. TECHNIQUE: 2D digital imaging was performed of the left elbow. Three images were obtained. AP, lat eral and oblique views were obtained. COMPARISON: CR XR ELBOW RT COMPLETE from 03/29/2023 FINDINGS: BONES: No acute fracture is present. No bony destructive lesion is seen. The coronoid process is not well visualized on these views. No definite fracture is identified. JOINTS: The elbow is normally aligned. SOFT TISSUE: Normal. IMPRESSION: No definite acute fracture or dislocation. If there is continued concern, an MRI may be considered f or further evaluation. DATA REPOSITORY: RADIATION DOSE DELIVERED:
== END 2023-04-12 10:51 | disposition home or self-care (01) ==
LOC: DIORS 10:50
PROVIDERS: PCP Family Medicine; Referring Provider Family Medicine; Visit Provider Physician Assistant
DX: M25.521 Pain in right elbow (principal)
CPT/HCPCS: 73080

== ENCOUNTER 2023-05-17 10:51 | Outpatient (CLI) | payer BC, SELFPAY ==
[2023-05-17 12:41] LABS: C-Reactive Protein 0.06 mg/dL (0.0-0.3)
[2023-05-17 12:45] LABS: ESR 9 mm/hr (0-30)
== END 2023-05-17 10:52 | disposition home or self-care (01) ==
LOC: LOS 10:51
PROVIDERS: PCP Family Medicine; Referring Provider Family Medicine; Visit Provider Family Medicine
DX: R41.89 Other symptoms and signs involving cognitive functions and awareness (principal); E11.9 Type 2 diabetes mellitus without complications
CPT/HCPCS: 36415; 85652; 86140

== ENCOUNTER 2023-11-15 11:23 | Outpatient (CLI) | payer MEDICARE, BC, SELFPAY ==
[2023-11-15 12:52] LABS: HCT 47.4 % (36.0-46.0); HGB 15.6 g/dL (11.2-15.7); MCH 28.8 pg (27.0-33.0); MCHC 32.9 % (32.0-36.0); MCV 88 fL (80-95); MPV 11.1 fL (8.0-11.0); Platelet Count 333 10^3/uL (130-400); RBC 5.42 10^6/uL (3.93-5.22); RDW 12.6 % (11.7-14.6); RDW-SD 40.3 fL; WBC 12.45 10^3/uL (4.4-10.8)
[2023-11-15 13:12] LABS: ALT 25 U/L (14-59); AST 14 U/L (15-37); Calculated LDL 102 mg/dL (<100); Cholesterol 192 mg/dL (<200); HDL Cholesterol 48 mg/dL (40-60); Triglyceride 212 mg/dL (<150)
== END 2023-11-15 11:24 | disposition home or self-care (01) ==
LOC: LOS 11:24
PROVIDERS: PCP Family Medicine; Referring Provider Family Medicine; Visit Provider Family Medicine
DX: I10 Essential (primary) hypertension (principal); E78.5 Hyperlipidemia, unspecified; R53.83 Other fatigue
CPT/HCPCS: 36415; 80061; 85027; 84450; 84460

== ENCOUNTER 2023-11-15 12:16 | Outpatient (REF) | payer MEDICARE, BC, SELFPAY ==
[2023-11-15 13:11] LABS: Microalb ug/mg Crea 28.1 ug/mg Cr
== END 2023-11-15 12:17 | disposition home or self-care (01) ==
LOC: LBN 12:16
PROVIDERS: PCP Family Medicine; Visit Provider Family Medicine
DX: E11.9 Type 2 diabetes mellitus without complications (principal)
CPT/HCPCS: 82043; 82570

== ENCOUNTER 2023-11-28 04:42 | Outpatient (CLI) | payer MEDICARE, BC, SELFPAY ==
--- NOTE | 2023-11-28 13:47 | W.NUTRFU ---
Date of service: 11/28/23 Time of Service: 11:30 Nutrition Note NOTE: Lu comes in with her Rodriguez. Would like some help with diet regarding managing her diabetes. Her A1C went up from 8.5-8.9 from July to October. Along with DMII her PMH is fatty liver, HTN, HLD, COPD, GERD, s/p colon resection in 2014, diverticulosis. Stopped metformin for a while due to GI concerns but resume this a few days ago taking 500mg once per day and working up to BID. Also on rybelsus and jardiance. Not taking any nutrition supps at home. Suggested a MVI for support and would recommend vitamin D lab as adquate levels are associated with better glucose control. 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 Lu and he joke that they are poor influences on each other's diets. intake somewhat limited by dentition issues with both she and her - do not eat raw fruit or veggies much unless cooked or modified. She checks her FBG most mornings. From review of typical intake - food choices tend to be low in fiber and produce intake is consistently at a deficit. We reviewed carb choices and that 15g=1 carb choices and her goal is about 10 carb choices per day (little less is fine but not more than 10). Lu jotted some points down throughout our conversation but did seem to get confused at times between concepts like aiming for 25 grams of fiber as a minimum, but that this is part of her daily carb intake. We reviewed added sugars and sweeteners are 4g per tsp. We discussed balancing plates with non-starchy veggies and protein choices and to avoid grazing - go two to three hours between eating and aim for 3 meals and can include 1-2 PLANNED snacks per day and reviewed some ideal snack combinations to make mini-meals that are focused in getting micronutrient needs met. They took my card with contact info should they like follow up appts, more resources or any help with menu planning further. Time Spent in Nutritional Counseling and Treatment: 45 minutes
== END 2023-11-28 04:43 | disposition home or self-care (01) ==
PROVIDERS: PCP Family Medicine; Visit Provider Dietitian, Registered
DX: E11.9 Type 2 diabetes mellitus without complications (principal); Z71.3 Dietary counseling and surveillance
CPT/HCPCS: 00123; 97802

== ENCOUNTER → 2023-12-13 20:57 | Outpatient (CLI) | payer MEDICARE, BC, SELFPAY ==
--- NOTE | 2023-12-13 14:20 | DI.RAD_ITS ---
Exam(s) XR ELBOW LT COMPLETE EXAM: XR ELBOW LT COMPLETE CLINICAL HISTORY: M25.522 left elbow pain. TECHNIQUE: 2D digital imaging was performed. Three views. COMPARISON: CR XR ELBOW RT COMPLETE from 04/12/2023 FINDINGS: BONES: No acute fracture is present. No bony destructive lesion is seen. Small olecranon spur. Mil d spurring at the coronoid process of the ulna. JOINTS: The elbow is normally aligned. No joint effusion is seen. Joint spaces are maintained. SOFT TISSUE: Mild swelling over the olecranon. IMPRESSION: Mild degenerative changes. DATA REPOSITORY: RADIATION DOSE DELIVERED:
== END ==
PROVIDERS: PCP Family Medicine; Visit Provider Family Medicine
DX: M25.522 Pain in left elbow (principal); M77.8 Other enthesopathies, not elsewhere classified; M19.022 Primary osteoarthritis, left elbow
CPT/HCPCS: 73080

== ENCOUNTER → 2023-12-29 14:59 | Outpatient (CLI) | payer MEDICARE, BC, SELFPAY ==
--- NOTE | 2023-12-29 12:15 | DI.US_ITS ---
Exam(s) US LOWER EXTREMITY VENOUS RT EXAM: US LOWER EXTREMITY VENOUS RT CLINICAL HISTORY: Pain in right calf, posterior, PAIN RT LOWER LEG, m79.661 TECHNIQUE: Grayscale, color, and doppler imaging of the deep venous system of the right lower extrem ity was performed. COMPARISON: US PELVIS TRANSVAG from 09/01/2016 FINDINGS: There is no evidence of intraluminal thrombus and there is normal compression and augmentation demons trated within the common femoral vein, femoral vein, and popliteal vein. In the ipsilateral calf the interrogated veins also exhibit normal compression/ augmentation properti es. The ipsilateral saphenofemoral junction is patent. IMPRESSION: 1. No evidence of DVT in the right lower extremity. DATA REPOSITORY:
== END ==
PROVIDERS: PCP Family Medicine; Visit Provider Nurse Practitioner Family
DX: M79.661 Pain in right lower leg (principal)
CPT/HCPCS: 93971

== ENCOUNTER → 2024-01-24 04:50 | Outpatient (CLI) | payer MEDICARE, BC, SELFPAY ==
--- NOTE | 2024-01-24 07:45 | DI.RAD_ITS ---
Exam(s) XR FOOT RT COMPLETE EXAM: XR FOOT RT COMPLETE CLINICAL HISTORY: Right foot pain,M79.671. TECHNIQUE: 2D digital imaging was performed of the right foot. Three images were obtained. AP, obl ique and lateral views were obtained. COMPARISON: CR XR FOOT LT COMPLETE from 01/24/2024 FINDINGS: BONES: No acute fracture is present. No bony destructive lesion is seen. There is a small plantar domonique caneal spur. There is a small enthesophyte at the posterior calcaneus. JOINTS: No dislocation present. The joint spaces are well maintained. Minimal degenerative changes a re seen in the interphalangeal joints of the toes. SOFT TISSUE: Normal. IMPRESSION: Calcaneal spurs and minimal degenerative changes of the foot. DATA REPOSITORY: RADIATION DOSE DELIVERED:
--- NOTE | 2024-01-24 07:45 | DI.RAD_ITS ---
Exam(s) XR FOOT LT COMPLETE EXAM: XR FOOT LT COMPLETE CLINICAL HISTORY: Left foot pain,M79.672. TECHNIQUE: 2D digital imaging was performed of the left foot. Three images were obtained. AP, obli que and lateral views were obtained. COMPARISON: CR LEFT FOOT COMPLETE from 01/31/2014 FINDINGS: BONES: No acute fracture is present. No bony destructive lesion is seen. There is a small plantar domonique caneal spur. There is a small enthesophyte at the posterior calcaneus. There is again seen a well c orticated triangular density at the dorsal aspect of the talonavicular joint. JOINTS: No dislocation present. There is mild narrowing of the MTP joint. The joint spaces are other patel well maintained. SOFT TISSUE: Normal. IMPRESSION: No acute abnormality. Findings in the left foot as described above. DATA REPOSITORY: RADIATION DOSE DELIVERED:
== END ==
PROVIDERS: PCP Family Medicine; Visit Provider Podiatrist
DX: M79.671 Pain in right foot (principal); M79.672 Pain in left foot
CPT/HCPCS: 73630

== ENCOUNTER → 2024-02-02 12:31 | Outpatient (BNVA) | payer MEDICARE, BC, SELFPAY | PROVIDERS: PCP Family Medicine; Referring Provider Podiatrist; Visit Provider Physical Therapy Assistant | DX: I73.9 Peripheral vascular disease, unspecified (principal) | CPT/HCPCS: 93922 ==

== ENCOUNTER → 2024-02-15 13:40 | Outpatient (BNVA) | payer MEDICARE, BC, SELFPAY | PROVIDERS: PCP Family Medicine; Referring Provider Family Medicine; Visit Provider Podiatrist | DX: M79.671 Pain in right foot (principal); M77.41 Metatarsalgia, right foot; M67.01 Short Achilles tendon (acquired), right ankle; M67.02 Short Achilles tendon (acquired), left ankle; R20.2 Paresthesia of skin; E11.42 Type 2 diabetes mellitus with diabetic polyneuropathy; E11.51 Type 2 diabetes mellitus with diabetic peripheral angiopathy without gangrene; M79.672 Pain in left foot | CPT/HCPCS: 99214 ==

== ENCOUNTER 2024-06-04 11:01 | Outpatient (CLI) | payer MEDICARE, BC, SELFPAY ==
[2024-06-04 12:55] LABS: CREATININE 0.8 mg/dL (0.55-1.02); Estimated GFR 81.72 (mL/min/1.73m2); Potassium 3.9 mmol/L (3.5-5.1); Vitamin B12 437 pg/mL (193-986)
== END 2024-06-04 11:02 | disposition home or self-care (01) ==
LOC: LOS 11:02
PROVIDERS: PCP Family Medicine; Referring Provider Family Medicine; Visit Provider Family Medicine
DX: I10 Essential (primary) hypertension (principal); D64.9 Anemia, unspecified; E11.9 Type 2 diabetes mellitus without complications; M72.0 Palmar fascial fibromatosis [Dupuytren]; B35.1 Tinea unguium; E11.51 Type 2 diabetes mellitus with diabetic peripheral angiopathy without gangrene; M54.50 Low back pain, unspecified; G57.92 Unspecified mononeuropathy of left lower limb
CPT/HCPCS: 36415; 82565; 82607; 84132

== ENCOUNTER 2024-08-08 10:25 | Outpatient (CLI) | payer MEDICARE, BC, SELFPAY ==
--- NOTE | 2024-08-08 09:15 | DI.RAD_ITS ---
Exam(s) XR HAND LT COMPLETE EXAM: XR HAND LT COMPLETE CLINICAL HISTORY: thumb pain. TECHNIQUE: 2D digital imaging was performed. Three views. COMPARISON: CR XR HAND LT COMPLETE from 03/24/2021 FINDINGS: BONES: No acute fracture is present. No bony destructive lesion is seen. JOINTS: No dislocation present. Moderate to severe joint space narrowing at the 1st carpal metacarp al joint. Moderate periarticular spurring. Slight lateral subluxation. Mild degenerative changes o f the interphalangeal joints of the fingers and thumb. SOFT TISSUE: Normal. IMPRESSION: Moderate to severe degenerative changes at the 1st carpal metacarpal joint. DATA REPOSITORY: RADIATION DOSE DELIVERED:
== END 2024-08-08 10:26 | disposition home or self-care (01) ==
LOC: DIORS 10:25
PROVIDERS: PCP Family Medicine; Referring Provider Family Medicine; Visit Provider Student in an Organized Health Care Education/Training Program
DX: M18.12 Unilateral primary osteoarthritis of first carpometacarpal joint, left hand; M72.0 Palmar fascial fibromatosis [Dupuytren]
CPT/HCPCS: 99213; 73130

== ENCOUNTER 2025-01-02 00:42 | Outpatient (CLI) | payer MEDICARE, BC, SELFPAY ==
--- NOTE | 2025-01-02 06:30 | DI.US_ITS ---
Exam(s) US ABDOMEN EXAM: US ABDOMEN CLINICAL HISTORY: epigastric pain and reassess fatty liver,k76.0,r10.13 TECHNIQUE: Ultrasound of complete upper abdomen performed using standard protocol. COMPARISON: US US LOWER EXTREMITY VENOUS RT from 12/29/2023 FINDINGS: There is no ascites evident. LIVER: Liver is echogenic implying steatosis. There no discrete focal hepatic lesions nor dilatation of intrahepatic ducts GALLBLADDER/BILIARY: There appear to be multiple small wall mural based polyps in the gallbladder joby suring up to 12 mm size. There are no shadowing calculi evident. No gallbladder wall edema nor marine cholecystic fluid. The common hepatic duct isnot dilated, measuring 4mm at the level of brooke hepatis. PANCREAS: There is no evidence of pancreatic mass nor dilatation of the pancreatic duct. SPLEEN: The spleen is not enlarged and there are no intrasplenic lesions evident. KIDNEYS:Kidneys exhibit normal size with no evidence of solid mass, calculus, nor hydronephrosis. No cortical cysts evident. ABDOMINAL AORTA: There is no evidence of abdominal aortic aneurysm. IVC: Normal diameter where visualized. IMPRESSION: 1. Polyps are noted in the gallbladder measuring up to 12 mm size. There are no shadowing calculi. No evidence of acute cholecystitis nor dilatation of the biliary tree. 2. Hepatic steatosis noted. No focal hepatic lesions evident 3. No other right upper quadrant ultrasound findings and there is no ascites. DATA REPOSITORY:
== END 2025-01-02 01:02 ==
LOC: DI 00:42
PROVIDERS: PCP Family Medicine; Visit Provider Family Medicine
DX: K76.0 Fatty (change of) liver, not elsewhere classified (principal); R10.13 Epigastric pain
CPT/HCPCS: 76700

== ENCOUNTER 2025-07-03 05:43 | Outpatient (CLI) | payer MEDICARE, BC, SELFPAY ==
--- NOTE | 2025-07-03 07:15 | DI.RAD_ITS ---
Exam(s) XR CERVICAL SPINE COMP 4-5V EXAM: XR CERVICAL SPINE COMP 4-5V CLINICAL HISTORY: neck/rt shoulder pain; no better w/ PT,m54.2. TECHNIQUE: 2D digital imaging was performed. Five views were performed. COMPARISON: No exams were available for comparison FINDINGS: BONES: No fracture or destructive lesion. There prominent facet degenerative changes throughout. There is severe right neural foraminal narrowing at C3-4 and C4-5. DISKS: Intervertebral disc spaces are maintained. There is small endplate osteophytes. ALIGNMENT: Cervical spinal alignment is within normal limits. The odontoid and atlantoaxial articulations are normal. SOFT TISSUE: Normal. The lung apices are clear. IMPRESSION: Severe facet degenerative changes causing severe neural foraminal narrowing on the right at C3-4 and C4-5. DATA REPOSITORY: RADIATION DOSE DELIVERED:
--- NOTE | 2025-07-03 07:15 | DI.RAD_ITS ---
Exam(s) XR SHOULDER RT COMPLETE 2+V EXAM: XR SHOULDER RT COMPLETE 2+V CLINICAL HISTORY: pain from neck to shoulder. TECHNIQUE: 2D digital imaging was performed. Five views. COMPARISON: CR RIGHT SHOULDER COMPLETE from 07/27/2015 FINDINGS: BONES: No acute fracture is present. No bony destructive lesion is seen. JOINTS: No dislocation present. Mild spurring at the AC joint and undersurface of the acromion. Moderate to severe narrowing of the glenohumeral joint. Prominent inferior spur at the inferior humeral head. Spurring at the margin of the glenoid. SOFT TISSUE: Normal. IMPRESSION: moderate degenerative changes of the glenohumeral joint. DATA REPOSITORY: RADIATION DOSE DELIVERED:
== END 2025-07-03 06:03 ==
LOC: DI 05:43
PROVIDERS: PCP Family Medicine; Visit Provider Family Medicine
DX: M54.2 Cervicalgia (principal); M54.9 Dorsalgia, unspecified; G89.29 Other chronic pain; M19.011 Primary osteoarthritis, right shoulder
CPT/HCPCS: 72050; 73030

== ENCOUNTER 2025-08-27 00:56 | Outpatient (CLI) | payer MEDICARE, BC, SELFPAY ==
[2025-08-27 14:19] LABS: ESR 5 mm/hr (0-30)
[2025-08-27 17:07] LABS: Cholesterol 204 mg/dL (<200); HDL Cholesterol 53 mg/dL (>40)
[2025-08-27 17:08] LABS: C-Reactive Protein < 0.50 mg/dL (<=0.50)
[2025-08-27 17:10] LABS: TSH (W/Ref FT4) 0.90 uIU/mL (0.55-4.78)
== END 2025-08-27 00:57 | disposition home or self-care (01) ==
LOC: LOS 00:56
PROVIDERS: PCP Family Medicine; Visit Provider Family Medicine
DX: E11.69 Type 2 diabetes mellitus with other specified complication (principal); E78.49 Other hyperlipidemia; Z13.220 Encounter for screening for lipoid disorders; E03.9 Hypothyroidism, unspecified; R41.89 Other symptoms and signs involving cognitive functions and awareness; M25.59 Pain in other specified joint
CPT/HCPCS: 36415; 80061; 85652; 84443; 86140